=== PATIENT | female | born 1990 | race Caucasian/White ===

== ENCOUNTER 2017-08-19 22:26 | Emergency (ER) | payer OTHER ==
[2017-08-20 00:47] LABS: RED BLOOD COUNT 4.49 M/UL (4.00-5.10)
== END 2017-08-20 04:45 | disposition short-term general hospital (02) ==
LOC: ER1 22:26
PROVIDERS: Physician Assistant
DX: G40.909 Epilepsy, unspecified, not intractable, without status epilepticus (principal); F17.200 Nicotine dependence, unspecified, uncomplicated
CPT/HCPCS: 36415; 70450; 80053; 85025; 93005; 96361; 96365; 96375; 99285; J1953; J2060